=== PATIENT | male | born 1945 | race Caucasian/White ===

== ENCOUNTER 2018-12-17 02:16 | Inpatient (IN) | payer MEDICARE, OTHER ==
[2018-12-17] VITALS (10 sets, daily range): BP systolic 135–188; BP diastolic 69–82; Ht 171.4 cm; Wt 79.4 kg
[~2018-12-17] VITALS: Ht 171.4 cm; Wt 79.4 kg
[~2018-12-17 02:16] MED LIST: BAYER CHEWABLE81 MG PO; ELIQUIS2.5 MG PO; FELODIPINE ER10 MG PO; FISH OIL 1,0001 CA1 PO; HYDROCODONE-APA1 TAB PO; MS CONTIN15 MG PO; NEXIUM40 MG PO; SYNTHROID100 MCG PO; SYNTHROID125 MCG PO; TOPROL XL200 MG PO; ZESTRIL40 MG PO; ZOCOR40 MG PO
[2018-12-17 03:10] LABS: BASOPHILS 0.5 % (0-2); EOSINOPHILS 5.5 % (0-7); HEMATOCRIT 40.7 % (42.0-54.0); HEMOGLOBIN 14.5 g/dL (13.5-17.5); IMMATURE GRANULOCYTES 0.4 % (0-5); LYMPHOCYTES 10.3 % (15-50); MCH 33.9 pg (26.0-34.0); MCHC 35.6 g/dL (31.0-37.0); MCV 95.1 fL (80.0-100.0); MEAN PLATELET VOLUME 9.7 fL (7.4-10.4); MONOCYTES 6.9 % (2-11); NEUTROPHILS 76.4 % (40-80); PLATELET COUNT 191 10x3/uL (130-400); RBC 4.28 10x6/uL (4.20-6.10); RDW 13.1 % (11.5-14.5); WBC 9.4 10x3/uL (4.8-10.8)
[2018-12-17 03:14] LABS: APPEARANCE CLEAR (CLEAR); BILIRUBIN NEGATIVE (NEGATIVE); COLOR YELLOW (YELLOW); GLUCOSE NEGATIVE (NEGATIVE); KETONE NEGATIVE (NEGATIVE); NITRITE NEGATIVE (NEGATIVE); PROTEIN NEGATIVE (NEGATIVE); SPECIFIC GRAVITY 1.015 (1.005-1.020); UROBILINOGEN NORMAL (NORMAL)
[2018-12-17 03:20] LABS: ALBUMIN 3.9 g/dL (3.4-5.0); ANION GAP 12.4 mmol/L (8-16); BILIRUBIN - TOTAL 0.5 mg/dL (0.2-1.3); CARBON DIOXIDE 29.8 mmol/L (21.0-32.0); CREATININE - SERUM 1.9 mg/dL (0.6-1.3); POTASSIUM - SERUM 4.2 mmol/L (3.5-5.1); PROTEIN - SERUM 8.5 g/dL (6.4-8.2)
[2018-12-17 03:22] LABS: MAGNESIUM - SERUM 0.9 mg/dL (1.8-2.4)
--- NOTE | 2018-12-17 07:58 | NUR ---
ALERT AND ORIENTED X 3. ADMISSION ASSESSMENT AND HISTORY COMPLETED. LUNGS CLEAR BILATERALLY IN ALL GAMEZ. HEART SOUNDS S1 AND S2 HEARD IN ALL GAMEZ. SKIN INTACT WITHOUT REDNESS. IV TO RIGHT HAND PATENT WITHOUT REDNESS. STATES PAIN HAS DECREASED DRAMATICALLY WITH MORPHINE DEFENCE INTELLIGENCE ANALYST. DENIES NEEDS. EDUCAITON PROVIDED ON NPO STATUS. BED LOW. CALL MASON AND PERSONAL ITEMS IN REACH. WILL CONTINUE TO MONITOR.
--- NOTE | 2018-12-17 10:40 | NUR ---
CONSENTS OBTAINED FOR PROCEDURE. DENIES QUESTIONS.
--- NOTE | 2018-12-17 12:39 | NUR ---
RESTING IN BED. AT BEDSIDE. DENIES PAIN. DENIES NEEDS. WILL CONTINUE TO MONITOR.
--- NOTE | 2018-12-17 14:35 | NUR ---
RESTING IN BED. DENIES NEEDS. WILL CONTINUE TO MONITOR.
--- NOTE | 2018-12-17 16:00 | NUR ---
BLOOD TRANSFUSION INITIATED. VITALS STABLE.
--- NOTE | 2018-12-17 17:32 | NUR ---
PATIENT TAKEN FOR PROCEDURE.
--- NOTE | 2018-12-17 19:44 | NUR ---
RECEIVED REPORT FROM MARY WU. PT CURRENTLY IN SURGERY.
--- NOTE | 2018-12-17 20:20 | NUR ---
RECEIEVED PT BACK FROM SURGERY. ALERT AND ORIENTED X 3, DENIES ANY PAIN AT THIS TIME. ASKED ABOUT EATING, TOLD HIM HE COULD CURRENTLY ONLY HAVE ICE CHIPS. HOOKED UP TO MORPHINE CORE SETTER PUMP AND NS @ 125. POST OP VITALS TAKEN WITH DOM FROM RECOVERY. WILL CONTINUE TO MONITOR.
[2018-12-18] VITALS (8 sets, daily range): BP systolic 133–166; BP diastolic 57–72
[2018-12-18 05:53] LABS: BASOPHILS 0.3 % (0-2); EOSINOPHILS 2.3 % (0-7); HEMOGLOBIN 12.1 g/dL (13.5-17.5); IMMATURE GRANULOCYTES 0.2 % (0-5); LYMPHOCYTES 11.8 % (15-50); MCH 33.3 pg (26.0-34.0); MCHC 34.6 g/dL (31.0-37.0); MCV 96.4 fL (80.0-100.0); MEAN PLATELET VOLUME 9.7 fL (7.4-10.4); MONOCYTES 7.8 % (2-11); NEUTROPHILS 77.6 % (40-80); RBC 3.63 10x6/uL (4.20-6.10); RDW 13.1 % (11.5-14.5); WBC 8.7 10x3/uL (4.8-10.8)
[2018-12-18 06:02] LABS: PLATELET COUNT 135 10x3/uL (130-400)
[2018-12-18 06:21] LABS: ALKALINE PHOSPHATASE 44 U/L (46-116); ALT (SGPT) 24 U/L (10-68); BILIRUBIN - TOTAL 0.68 mg/dL (0.2-1.3); CALC OSMOLALITY 284 mosm/kg (275-300); CALCIUM 7.1 mg/dL (8.5-10.1); CARBON DIOXIDE 25.9 mmol/L (21.0-32.0); CHLORIDE - SERUM 108 mmol/L (98-107); CREATININE - SERUM 1.8 mg/dL (0.6-1.3); GLUCOSE 128 mg/dL (74-106); PHOSPHOROUS 3.1 mg/dL (2.5-4.9); POTASSIUM - SERUM 3.8 mmol/L (3.5-5.1); PROTEIN - SERUM 6.7 g/dL (6.4-8.2); SODIUM 141 mmol/L (136-145); UREA NITROGEN 19 mg/dL (7-18); eGFR NON AFRICAN AMERICAN 40 mL/min (90-120)
[2018-12-18 06:25] LABS: ALBUMIN 2.9 g/dL (3.4-5.0); MAGNESIUM - SERUM 1.9 mg/dL (1.8-2.4); TROPONIN-I < 0.017 ng/mL (0.000-0.060)
--- NOTE | 2018-12-18 11:09 | NUR ---
PATIENT RESTING WITH NO NEEDS VOICED, REPORTS ABDOMINAL SORENESS RELIEVED WITH PHYSICAL THERAPY TEACHER. PATIENT DENIES PASSING GAS BUT BOWEL SOUNDS ARE WNL
--- NOTE | 2018-12-18 19:56 | NUR ---
PT RESTING IN BED. NO SIGNS OF DISTRESS AND DENIES NEEDS. INCISION NOTED TO RIGHT SIDE OF ABDOMEN AND 3 SMALL LAP SITES DOWN THE MIDLINE, ALL CLEAN DRY AND INTACT WITH STERI STRIPS. BED LOW, CALL LIGHT IN REACH, RAILS UP X 2.
[2018-12-19] VITALS: BP 149/61
[2018-12-19 07:05] LABS: BASOPHILS 0.2 % (0-2); EOSINOPHILS 3.5 % (0-7); HEMATOCRIT 32.6 % (42.0-54.0); HEMOGLOBIN 11.1 g/dL (13.5-17.5); IMMATURE GRANULOCYTES 0.4 % (0-5); MCH 33.1 pg (26.0-34.0); MCV 97.3 fL (80.0-100.0); MEAN PLATELET VOLUME 9.9 fL (7.4-10.4); MONOCYTES 7.1 % (2-11); NEUTROPHILS 78.8 % (40-80); PLATELET COUNT 127 10x3/uL (130-400); RBC 3.35 10x6/uL (4.20-6.10); RDW 13.2 % (11.5-14.5)
[2018-12-19 07:20] LABS: ANION GAP 13.8 mmol/L (8-16); CALCIUM 7.2 mg/dL (8.5-10.1); CARBON DIOXIDE 24.7 mmol/L (21.0-32.0); POTASSIUM - SERUM 3.5 mmol/L (3.5-5.1)
[2018-12-19 07:21] LABS: CREATININE - SERUM 1.2 mg/dL (0.6-1.3)
[2018-12-19 09:02] VITALS: BP 175/68
--- NOTE | 2018-12-19 11:31 | NUR ---
PATIENT REQUEST VO REMOVED DUE TO DISCOMFORT WITH AMBULATING. VO CATH DISCONTINUED WITHOUT ISSUES.
[2018-12-19 13:41] VITALS: BP 172/73
--- NOTE | 2018-12-19 16:33 | MORECARE ---
CASE MANAGEMENT DISCHARGE SUMMARY PATIENT: JORGE HORN UNIT: [id number] ADM DATE: 12/17/18 AGE: 73 : 47 SEX: M ROOM/BED: D.2240 AUTHOR: SURYADOC PHYSICIAN: REFERRING PHYSICIAN: LETICIA NARANJO MD DATE OF SERVICE: 12/19/18 Discharge Plan Patient Name: JORGE HORN Facility: [facility]:[place] : 1945 Planned Disposition: Home Anticipated Discharge Date: Discharge Date: Expected LOS: Initial Reviewer: [email or web address] Initial Review Date: 12/19/2018 Generated: 12/19/18 5:33 pm Comments DCP- Discharge Planning Updated by [email or web address]: Cande Quesada on 12/19/18 3:[address] Patient Name: JORGE HORN Admission Status: ER Accout number: [id number] Admission Date: 12-17-2018 : 1945 Admission Diagnosis: Attending: LETICIA NARANJO Current LOS: 2 Anticipated DC Date: Planned Disposition: Home Primary Insurance: MEDICARE A & B Discharge Planning Comments: CM met with patient to complete initial dc planning assessment. CM educated patient on the CM role and verbal consent given by patient to complete assessment. Patient lives at home with . At discharge patient plans to return home and feels this is a safe discharge. CM discussed availability of home health, rehab services, and medical equipment. Patient denied known discharge needs at this time. CM will continue to follow and will assist as needed with dc plans/needs. Florist Manager: Cande Quesada DCPIA - Discharge Planning Initial Assessment Updated by [email or web address]: Cande Quesada on 12/19/18 4:27 pm * Is the patient Alert and Oriented? Yes * PCP MEET * Pharmacy [facility] * Preadmission Environment Home with Family * ADLs Independent * List name and contact numbers for known caregivers / representatives who currently or will assist patient after discharge: RACHEL SORTO, * Additional services required to return to the preadmission environment? No * Can the patient safely return to the preadmission environment? Yes * Has this patient been hospitalized within the prior 30 days at any hospital? No Patient Name: JORGE HORN Page [id number] at 1633 All edits/amendments must be made on the electronic document DICTATION DATE: 12/19/181632 GOURMET COFFEE ATTENDANT: GABBY 12/19/181632 RPT#: [id number] DC DATE: STATUS: ADM IN [facility] [address] [place] [address] END OF REPORT
[2018-12-19 17:21] VITALS: BP 188/80
[2018-12-19 20:00] VITALS: BP 182/78
--- NOTE | 2018-12-19 20:40 | NUR ---
AWAKE,ALERT.UP AMBULATING IN HALLWAY. NO DISTRESS NOTED. RESP UNLABORED. LAP SITES DRSG WITH STERI STRIPS INTACT WITHOUT DRAINAGE NOTED. DECK STEWARD MORPHINE IN USE FOR PAIN CONTROL
[2018-12-20 04:00] VITALS: BP 185/83
[2018-12-20 05:29] LABS: BASOPHILS 0.4 % (0-2); EOSINOPHILS 2.9 % (0-7); HEMATOCRIT 34.4 % (42.0-54.0); IMMATURE GRANULOCYTES 0.3 % (0-5); LYMPHOCYTES 15.3 % (15-50); MCH 33.1 pg (26.0-34.0); MCHC 34.9 g/dL (31.0-37.0); MEAN PLATELET VOLUME 10.1 fL (7.4-10.4); NEUTROPHILS 73.1 % (40-80); RBC 3.62 10x6/uL (4.20-6.10); RDW 12.8 % (11.5-14.5); WBC 10.6 10x3/uL (4.8-10.8)
[2018-12-20 05:45] LABS: PLATELET COUNT 153 10x3/uL (130-400)
[2018-12-20 05:46] LABS: CALCIUM 7.8 mg/dL (8.5-10.1); CARBON DIOXIDE 24.4 mmol/L (21.0-32.0); CREATININE - SERUM 1.1 mg/dL (0.6-1.3); MAGNESIUM - SERUM 1.8 mg/dL (1.8-2.4); POTASSIUM - SERUM 3.4 mmol/L (3.5-5.1)
[2018-12-20 05:54] LABS: PHOSPHOROUS 2.1 mg/dL (2.5-4.9)
--- NOTE | 2018-12-20 06:23 | NUR ---
I have reviewed this patient and I concur with the Shift Assessment completed by the Licensed Practical Nurse today this shift.
--- NOTE | 2018-12-20 08:20 | NUR ---
PT SITTING UP ON SIDE OF BED. NO ACUTE DISTRESS NOTED. REPORTS PAIN TO ABDOMINAL INCISIONS 4/10 AT THIS TIME. MORPHINE RN CASE MGR INTACT AND IN USE. IV TO LEFT UPPER ARM WITH D5 @ 10ML/HR INFUSING VIA PUMP, SITE WITHOUT REDNESS OR EDEMA. LAP SITES X 3 TO ABDOMEN, STERI STRIPS, C/D/I. DENIES FURTHER NEEDS AT THIS TIME. CL WITHIN REACH. ENCOURAGED TO CALL WITH NEEDS. CONTINUE POC
[2018-12-20 08:59] VITALS: BP 181/79
[2018-12-20] MEDS ORDERED: MIRALAX17 GM PO (10:50)
--- NOTE | 2018-12-20 12:48 | MORECARE ---
CASE MANAGEMENT DISCHARGE SUMMARY PATIENT: JORGE HORN UNIT: [id number] ADM DATE: 12/17/18 AGE: 73 : 47 SEX: M ROOM/BED: D.2240 AUTHOR: RAVINDRA LONDON PHYSICIAN: REFERRING PHYSICIAN: LETICIA NARANJO MD DATE OF SERVICE: 12/20/18 Discharge Plan Patient Name: JORGE HORN Facility: [facility]:[place] : 1945 Planned Disposition: Home Anticipated Discharge Date: Discharge Date: Expected LOS: Initial Reviewer: [email or web address] Initial Review Date: 12/19/2018 Generated: 12/20/18 1:47 pm Comments DCP- Discharge Planning Updated by [email or web address]: Hiral Cee on 12/20/18 11:[address] Patient Name: JORGE HORN Encounter No: [id number] : 1945 Primary Insurance: MEDICARE A & B Anticipated DC Date: Planned Disposition: Home External Planned Provider: : DCP follow-up note: Patient and family in agreement with discharge plan. No changes to plan. Case management will follow and assist as needed. Hiral Cee DCP- Discharge Planning Updated by [id number]: Cande Quesada on 12/19/18 3:[address] Patient Name: JORGE HORN Admission Status: ER Accout number: [id number] Admission Date: 12-17-2018 : 1945 Admission Diagnosis: Attending: LETICIA NARANJO Current LOS: 2 Anticipated DC Date: Planned Disposition: Home Primary Insurance: MEDICARE A & B Discharge Planning Comments: CM met with patient to complete initial dc planning assessment. CM educated patient on the CM role and verbal consent given by patient to complete assessment. Patient lives at home with . At discharge patient plans to return home and feels this is a safe discharge. CM discussed availability of home health, rehab services, and medical equipment. Patient denied known discharge needs at this time. CM will continue to follow and will assist as needed with dc plans/needs. Compensation Adjuster: Cande Quesada DCPIA - Discharge Planning Initial Assessment Updated by [email or web address]: aCnde Quesada on 12/19/18 4:27 pm * Is the patient Alert and Oriented? Yes * PCP MEET * Pharmacy [facility] * Preadmission Environment Home with Family * ADLs Independent * List name and contact numbers for known caregivers / representatives who currently or will assist patient after discharge: RACHEL SORTO, * Additional services required to return to the preadmission environment? No * Can the patient safely return to the preadmission environment? Yes * Has this patient been hospitalized within the prior 30 days at any hospital? No Coverage Notice Reviewer: [email or web address] Marilyn Cee Notice Issued Date-Time: 12/20/2018 12:41 Notice Type: IM Discharge Notice Notice Delivered To: Patient Relationship to Patient: Self Screwhead Polisher Name: Delivery Method: HAND - Hand Delivered Deepa Days: Prior Verbal Notification: Recipient Understood Notice: Yes Recipient Signature: Yes Med Rec Note Co-signed by Attending: Coverage Notice Comment: IMM explained, signed, given, copy placed in MR Last DP export: 12/19/18 3:33 p Patient Name: JORGE HORN Page [phone] at 1248 All edits/amendments must be made on the electronic document DICTATION DATE: 12/20/18 1247 RARE/ENDANGERED SPECIES SPECIALIST: DM 12/20/18 1247 RPT#: [id number] DC DATE: STATUS: ADM IN [facility] [address] [place] [address] END OF REPORT
[2018-12-20] MEDS ORDERED: HYDROCODON-ACE1 EAC7 PO (12:55)
--- NOTE | 2018-12-20 13:30 | NUR ---
PT DISCHARGE INSTRUCTIONS PROVIDED TO PT AND FAMILY. DISCUSSED FOLLOW UP APPOINTMENTS AND PRESCRIPTION FOR PAIN MEDICATION. PRESCRIPTION GIVEN TO PT. DISCUSSED S/S OF INFECTION AND THINGS TO MONITOR FOR. DENIES QUESTIONS AT THIS TIME. IV D/C'D FROM LEFT UPPER ARM, CATH INTACT. PT TAKEN OUT TO PRIVATE VEHICLE VIA W/C WITH ALL PERSONAL BELONGINGS.
== END 2018-12-20 13:43 | disposition home or self-care (01) | DRG 330 ==
LOC: D.ER 02:16 → D.MS 04:53
PROVIDERS: Emergency Medicine; Surgery; ADMIT Internal Medicine Nephrology; ATTEND Internal Medicine Nephrology
PROC: 0DTF0ZZ Resection of Right Large Intestine, Open Approach (ICD-10-PCS; principal; 2018-12-17 13:00)
DX: K56.2 Volvulus (principal); N17.9 Acute kidney failure, unspecified; F17.213 Nicotine dependence, cigarettes, with withdrawal; E83.42 Hypomagnesemia; I10 Essential (primary) hypertension

== ENCOUNTER 2020-08-06 18:06 | Emergency (ER) | payer MEDICARE, OTHER ==
[~2020-08-06] VITALS: Ht 171.4 cm; Wt 77.7 kg
[~2020-08-06 18:06] MED LIST changes: +HYDROCODON-ACE1 EAC7 PO; +MIRALAX17 GM PO
[2020-08-06 18:25] VITALS: Ht 171.4 cm; Wt 77.7 kg
[2020-08-06 18:58] LABS: BASOPHILS 0.6 % (0-2); EOSINOPHILS 6.7 % (0-7); HEMATOCRIT 36.8 % (42.0-54.0); HEMOGLOBIN 12.9 g/dL (13.5-17.5); IMMATURE GRANULOCYTES 0.1 % (0-5); LYMPHOCYTE ABS# 2.48 10x3/uL (1.32-3.57); LYMPHOCYTES 30.2 % (15-50); MCH 32.3 pg (26.0-34.0); MCHC 35.1 g/dL (31.0-37.0); MCV 92.2 fL (80.0-100.0); MEAN PLATELET VOLUME 8.7 fL (7.4-10.4); NEUTROPHIL ABS# 4.47 10x3/uL (1.78-5.38); NEUTROPHILS 54.4 % (40-80); RBC 3.99 10x6/uL (4.20-6.10); RDW 13.3 % (11.5-14.5); WBC 8.2 10x3/uL (4.8-10.8)
[2020-08-06 19:08] LABS: PLATELET COUNT 217 10x3/uL (130-400)
[2020-08-06 19:14] LABS: ANION GAP 9.1 mmol/L (8-16); CREATININE - SERUM 1.3 mg/dL (0.6-1.3); POTASSIUM - SERUM 3.1 mmol/L (3.5-5.1)
[2020-08-06 19:20] LABS: ALBUMIN 3.4 g/dL (3.4-5.0); BILIRUBIN - TOTAL 0.38 mg/dL (0.2-1.3); PROTEIN - SERUM 7.2 g/dL (6.4-8.2)
[2020-08-06] MEDS ORDERED: HYDROCODON-ACE1 EAC7 PO (21:45)
[2020-08-06] MEDS ORDERED: FLORASTOR250 MG PO (21:45)
[2020-08-06] MEDS ORDERED: LOMOTIL 2.5-0.1 EAC1 PO (21:45)
[2020-08-06 22:37] VITALS: BP 140/69
== END 2020-08-06 22:38 | disposition home or self-care (01) ==
LOC: D.ER 18:06
PROVIDERS: Family Medicine
DX: R19.7 Diarrhea, unspecified (principal); I10 Essential (primary) hypertension; Z72.0 Tobacco use

== ENCOUNTER 2020-08-08 18:33 | Emergency (ER) | payer MEDICARE, OTHER ==
[~2020-08-08] VITALS: Ht 171.4 cm; Wt 77.7 kg
[~2020-08-08 18:33] MED LIST changes: +FLORASTOR250 MG PO; +LOMOTIL 2.5-0.1 EAC1 PO
[2020-08-08 18:39] VITALS: Ht 171.4 cm; Wt 77.7 kg
[2020-08-08 19:15] LABS: BASOPHILS 0.6 % (0-2); EOSINOPHILS 5.7 % (0-7); HEMATOCRIT 36.2 % (42.0-54.0); HEMOGLOBIN 12.6 g/dL (13.5-17.5); IMMATURE GRANULOCYTES 0.3 % (0-5); LYMPHOCYTE ABS# 2.71 10x3/uL (1.32-3.57); LYMPHOCYTES 30.8 % (15-50); MCH 33.1 pg (26.0-34.0); MCHC 34.8 g/dL (31.0-37.0); MONOCYTES 8.5 % (2-11); NEUTROPHIL ABS# 4.75 10x3/uL (1.78-5.38); NEUTROPHILS 54.1 % (40-80); PLATELET COUNT 222 10x3/uL (130-400); RBC 3.81 10x6/uL (4.20-6.10); RDW 13.5 % (11.5-14.5); WBC 8.8 10x3/uL (4.8-10.8)
[2020-08-08 19:36] LABS: CALC OSMOLALITY 272 mosm/kg (275-300); CALCIUM 8.3 mg/dL (8.5-10.1); CARBON DIOXIDE 28.3 mmol/L (21.0-32.0); CHLORIDE - SERUM 100 mmol/L (98-107); CREATININE - SERUM 1.2 mg/dL (0.6-1.3); GLUCOSE 94 mg/dL (74-106); SODIUM 135 mmol/L (136-145); UREA NITROGEN 20 mg/dL (7-18); eGFR NON AFRICAN AMERICAN 63 mL/min (90-120)
[2020-08-08 19:47] LABS: ALBUMIN 3.4 g/dL (3.4-5.0); ALKALINE PHOSPHATASE 48 U/L (30-120); ALT (SGPT) 70 U/L (10-68); AMYLASE - SERUM 102 U/L (25-115); BILIRUBIN - TOTAL 0.26 mg/dL (0.2-1.3); LIPASE 186 U/L (73-393); TROPONIN-I < 0.017 ng/mL (0.000-0.060)
[2020-08-08] MEDS ORDERED: QUESTRAN LIG1 PACKET PO (20:13)
[2020-08-08 20:31] LABS: BILIRUBIN NEGATIVE (NEGATIVE); KETONE NEGATIVE (NEGATIVE); NITRITE NEGATIVE (NEGATIVE); UROBILINOGEN NORMAL mg/dL (< 2)
[2020-08-08] MEDS ORDERED: TYLENOL W/CODEI1 TAB PO (20:35)
[2020-08-08 21:06] VITALS: BP 160/78
== END 2020-08-09 06:20 | disposition home or self-care (01) ==
LOC: D.ER 18:33
PROVIDERS: Family Medicine
DX: R19.7 Diarrhea, unspecified (principal); R19.4 Change in bowel habit; R11.0 Nausea; I10 Essential (primary) hypertension; Z72.0 Tobacco use